=== PATIENT | female | born 1995 | race Asian ===

== ENCOUNTER 2018-12-17 17:28 | Emergency (ER) | payer SELFPAY ==
[~2018-12-17] VITALS: Ht 157.5 cm; Wt 52.0 kg
[2018-12-17] MEDS ORDERED: FLUORESCEIN SODIUM 1MG/STRIP OP ONE (21:15)
[2018-12-17] MEDS ORDERED: TETRACAINE 0.5% OPHTH DROPS 4ML OP ONE (21:15)
[2018-12-17 23:13] VITALS: BP 114/81
== END 2018-12-17 23:14 | disposition home or self-care (01) ==
LOC: ER 17:28
DX: T54.2X1A Toxic effect of corrosive acids and acid-like substances, accidental (unintentional), initial encounter (principal); H10.211 Acute toxic conjunctivitis, right eye; Y93.89 Activity, other specified; Y92.89 Other specified places as the place of occurrence of the external cause; Y99.0 Civilian activity done for income or pay
CPT/HCPCS: 99283